=== PATIENT | female | born 1940 | race Caucasian/White ===

== ENCOUNTER 2016-03-22 09:30 | Outpatient (RCR) | payer MEDICARE, MEDICAID ==
--- OUTSIDE RECORDS SUMMARY | 2016-02-16 08:49 | XMS REPORT | Continuity of Care Document ---
Author Author [facility] Organization [facility] Address Unknown Phone Unavailable Care Team Providers Care Art Glass Setter Name Role Phone SHON CORDERO DO PCP Insurance Providers Payer Name Policy Number Subscriber Name Relationship [employer] [id number] Mony Sims 18 Self / Same As Patient Medicaid [place] [id number] Mony Sims 18 Self / Same As Patient Advance Directives Directive Response Recorded Date/Time Advance Directives Yes 11/30/15 1:13pm Health Care Power of Manager Generation No 11/30/15 1:13pm Organ Donor Yes 11/30/15 1:13pm Resuscitation Status Full Code 11/30/15 1:13pm Problems No problem information available. Medications Current Home Medications Medication Dose Units Route Directions Days/Qty Instructions Start Date Lisinopril 10 Mg 10 Mg Oral Daily 11/30/15 Ezetimibe 10 Mg 10 Mg Oral Daily 11/30/15 Potassium Chloride 20 Meq 20 Meq Oral Every Other Day 11/30/15 Pantoprazole Sodium 40 Mg 40 Mg Oral Daily 11/30/15 Paroxetine Hcl 10 Mg 10 Mg Oral Daily 11/30/15 Hydrocodone/Acetaminophen 1 Each 1 Each Oral Every 4HRS as needed for Pain 11/30/15 Multivitamin 1 Each 1 Each Oral Daily 11/30/15 [place] 3 Polyunsat Fatty Acids 1,000 Mg 1,000 Mg Oral Daily 11/30/15 Aspirin 81 Mg 81 Mg Oral Daily 11/30/15 Ferrous Sulfate 325 Mg 325 Mg Oral Every Other Day 11/30/15 Social History Social History Problem Response Recorded Date/Time Alcohol Use Denies Use 11/30/2015 1:13pm Recreational Drug Use No 11/30/2015 1:13pm Recent Foreign Travel No 11/30/2015 1:13pm Recent Infectious Disease Exposure No 11/30/2015 1:13pm Hospitalization with Isolation Denies 11/30/2015 1:13pm Smoking Status Former Smoker 11/30/2015 1:11pm Query Response Start Date Stop Date Smoking Status Former Smoker Hospital Discharge Instructions No hospital discharge instructions. Plan of Care Discharge Date 11/30/15 3:56pm Prescriptions See Medication Section Functional Status No functional status results. Allergies, Adverse Reactions, Alerts Allergen Type Severity Reaction Status Last Updated Iodinated Contrast Media - IV Dye Allergy Unknown HIVES Active 11/30/15 Pegpaae-Hfw-Ewe Reductase Inhibitors ([id number]) Allergy Unknown muscle pain Active 11/30/15 Levofloxacin Allergy Unknown HIVES Active 11/30/15 Immunizations Name Given Type Date of Pneumonia Vaccine 11/29/14 Historical Vital Signs Acute Vital Signs Vital Response Date/Time Height (Feet) 5 feet 11/30/2015 1:13pm Height (Inches) 3.00 inches 11/30/2015 1:13pm Height (Calculated Centimeters) 160.563388 cm 11/30/2015 1:13pm Weight (Pounds) 183 pounds 11/30/2015 1:13pm Weight (Ounces) 0.0 oz 11/30/2015 1:13pm Weight (Calculated Grams) 36282.405 gm 11/30/2015 1:13pm Weight (Calculated Kilograms) 83.144066 kilograms 11/30/2015 1:13pm Calculated BMI 30.45 11/30/2015 1:13pm Results Laboratory Results Test Name Result Units Flags Reference Collection Date/Time Result Date/ Time Comments White Blood Count 9.8 10^3/uL 4.3-11.0 11/28/2015 10:30am 11/28/2015 10 :37am Red Blood Count 4.74 10^6/uL 4.35-5.85 11/28/2015 10:30am 11/28/2015 10 :37am Hemoglobin 13.0 G/DL 11.5-16.0 11/28/2015 10:30am 11/28/2015 10:37am Hematocrit 41 % 35-52 11/28/2015 10:3011/28/2015 10:37am Mean Corpuscular Volume 85 FL 80-99 11/28/2015 10:11/28/2015 10: 37am Mean Corpuscular Hemoglobin 27 PG 25-34 11/28/2015 10:11/28/2015 10:37am Mean Corpuscular Hemoglobin Concent 32 G/DL 32-36 11/28/2015 10: 10:37am Red Cell Distribution Width 15.8 % H 10.0-14.5 11/28/2015 10:302015 10:37am Platelet Count 396 10^3/uL 130-400 11/28/2015 10:11/28/2015 10: 37am Mean Platelet Volume 8.3 FL 7.4-10.4 11/28/2015 10:11/28/2015 10: 37am Neutrophils (%) (Auto) 76 % H 42-75 11/28/2015 10:11/28/2015 10: 37am Lymphocytes (%) (Auto) 16 % 12-44 11/28/2015 10:11/28/2015 10: 37am Monocytes (%) (Auto) 6 % 0-12 11/28/2015 10:11/28/2015 10:37am Eosinophils (%) (Auto) 1 % 0-10 11/28/2015 10:11/28/2015 10:37am Basophils (%) (Auto) 1 % 0-10 11/28/2015 10:11/28/2015 10:37am Neutrophils # (Auto) 7.4 X 10^3 1.8-7.8 11/28/2015 10:11/28/2015 10:37am Lymphocytes # (Auto) 1.6 X 10^3 1.0-4.0 11/28/2015 10:11/28/2015 10:37am Monocytes # (Auto) 0.6 X 10^3 0.0-1.0 11/28/2015 10:3011/28/2015 10: 37am Eosinophils # (Auto) 0.1 10^3/uL 0.0-0.3 11/28/2015 10:3011/28/2015 10:37am Basophils # (Auto) 0.1 10^3/uL 0.0-0.1 11/28/2015 10:30am 11/28/2015 10 :37am Sodium Level 139 MMOL/L 135-145 11/28/2015 10:30am 11/28/2015 10:57am Potassium Level 4.1 MMOL/L 3.6-5.0 11/28/2015 10:30am 11/28/2015 10: 57am Chloride Level 105 MMOL/L 98-107 11/28/2015 10:30am 11/28/2015 10:57am Carbon Dioxide Level 24 MMOL/L 21-32 11/28/2015 10:30am 11/28/2015 10: 57am Anion Gap 10 MMOL/L 5-14 11/28/2015 10:30am 11/28/2015 10:57am Blood Urea Nitrogen 18 MG/DL -18 11/28/2015 10:30am 11/28/2015 10: 57am Creatinine 0.76 MG/DL 0.60-1.30 11/28/2015 10:30am 11/28/2015 10:57am BUN/Creatinine Ratio 24 11/28/2015 10:30am 11/28/2015 10:57am Estimat Glomerular Filtration Rate > 60 11/28/2015 10:30am 2015 10:57am GFR INTERPRETIVE DATA UNITS FOR ESTIMATED GFR (eGFR): mL/min/1.73 M2 REFERENCE RANGE FOR ESTIMATED GFR (eGFR) eGFR NORMAL eGFR >60 MODERATELY DECREASED eGFR 30-59 SEVERLY DECREASED eGFR 15-29 KIDNEY FAILURE <15 (OR DIALYSIS) Glucose Level 104 MG/DL 70-105 11/28/2015 10:30am 11/28/2015 10:57am Calcium Level 9.7 MG/DL 8.5-10.1 11/28/2015 10:3011/28/2015 10:57am Total Bilirubin 0.4 MG/DL 0.1-1.0 11/28/2015 10:30am 11/28/2015 10: 57am Alkaline Phosphatase 89 U/L 40-136 11/28/2015 10:30am 11/28/2015 10: 57am Aspartate Amino Transf (AST/SGOT) 26 U/L 5-34 11/28/2015 10:30am 2015 10:57am Alanine Aminotransferase (ALT/SGPT) 21 U/L 0-55 11/28/2015 10:30am 10:57am Total Protein 7.5 G/DL 6.4-8.2 11/28/2015 10:30am 11/28/2015 10:57am Albumin 4.1 G/DL 3.2-4.5 11/28/2015 10:30am 11/28/2015 10:57am Procedures Procedure Status Date Provider(s) Color Doppler echocardiography Completed 11/30/15 [facility] Encounters Encounter Location Arrival/Admit Date Discharge/Depart Date Attending Provider Departed Clinic [facility] 11/30/15 10:59am 11/30/15 3: 56pm SHREE THOMPSON DO Registered Clinic [facility] 11/30/15 8:21am [facility] CHIU Registered Recurring [facility] 11/28/15 8:26am [facility]
[2016-02-16 09:10] LABS: BASOPHILS # (AUTO) 0.1 10^3/uL (0.0-0.1); BASOPHILS % (AUTO) 1 % (0-10); EOSINOPHILS # (AUTO) 0.2 10^3/uL (0.0-0.3); EOSINOPHILS % (AUTO) 3 % (0-10); LYMPHOCYTES # (AUTO) 1.4 X 10^3 (1.0-4.0); LYMPHOCYTES % (AUTO) 22 % (12-44); MEAN CORPUSCULAR HEMOGLOBIN 28 PG (25-34); MEAN CORPUSCULAR HGB CONC 32 G/DL (32-36); MEAN CORPUSCULAR VOLUME 88 FL (80-99); MONOCYTES # (AUTO) 0.6 X 10^3 (0.0-1.0); MONOCYTES % (AUTO) 9 % (0-12); NEUTROPHILS # (AUTO) 4.2 X 10^3 (1.8-7.8); NEUTROPHILS % (AUTO) 65 % (42-75); PLATELET COUNT 421 10^3/uL (130-400); RED BLOOD COUNT 4.27 10^6/uL (4.35-5.85); RED CELL DISTRIBUTION WIDTH 18.5 % (10.0-14.5); WHITE BLOOD COUNT 6.4 10^3/uL (4.3-11.0)
[2016-02-16 09:40] LABS: ANION GAP 10 MMOL/L (5-14); BLOOD UREA NITROGEN 15 MG/DL (7-18); BUN/CREATININE RATIO 19; CALCIUM 9.6 MG/DL (8.5-10.1); CARBON DIOXIDE 20 MMOL/L (21-32); CHLORIDE 108 MMOL/L (98-107); CREATININE SERUM 0.78 MG/DL (0.60-1.30); GFR ESTIMATED > 60; GLUCOSE 99 MG/DL (70-105); POTASSIUM 3.7 MMOL/L (3.6-5.0); SODIUM 138 MMOL/L (135-145)
[2016-03-01 10:48] LABS: BASOPHILS # (AUTO) 0.1 10^3/uL (0.0-0.1); BASOPHILS % (AUTO) 1 % (0-10); EOSINOPHILS % (AUTO) 0 % (0-10); LYMPHOCYTES # (AUTO) 1.4 X 10^3 (1.0-4.0); LYMPHOCYTES % (AUTO) 14 % (12-44); MEAN CORPUSCULAR HEMOGLOBIN 28 PG (25-34); MEAN CORPUSCULAR HGB CONC 33 G/DL (32-36); MEAN CORPUSCULAR VOLUME 87 FL (80-99); MEAN PLATELET VOLUME 8.8 FL (7.4-10.4); MONOCYTES # (AUTO) 1.4 X 10^3 (0.0-1.0); MONOCYTES % (AUTO) 14 % (0-12); NEUTROPHILS # (AUTO) 7.5 X 10^3 (1.8-7.8); NEUTROPHILS % (AUTO) 72 % (42-75); PLATELET COUNT 507 10^3/uL (130-400); RED BLOOD COUNT 4.23 10^6/uL (4.35-5.85); RED CELL DISTRIBUTION WIDTH 18.3 % (10.0-14.5); WHITE BLOOD COUNT 10.4 10^3/uL (4.3-11.0)
[2016-03-01 11:19] LABS: ALANINE AMINOTRANSFERASE 20 U/L (0-55); ALBUMIN 4.1 G/DL (3.2-4.5); ANION GAP 12 MMOL/L (5-14); ASPARTATE AMINO TRANSFERASE 38 U/L (5-34); BILIRUBIN,TOTAL 0.5 MG/DL (0.1-1.0); BLOOD UREA NITROGEN 21 MG/DL (7-18); BUN/CREATININE RATIO 27; CALCIUM 10.1 MG/DL (8.5-10.1); CARBON DIOXIDE 22 MMOL/L (21-32); CHLORIDE 103 MMOL/L (98-107); CREATININE SERUM 0.77 MG/DL (0.60-1.30); GFR ESTIMATED > 60; GLUCOSE 98 MG/DL (70-105); POTASSIUM 3.8 MMOL/L (3.6-5.0); SODIUM 137 MMOL/L (135-145); TOTAL PROTEIN 7.9 G/DL (6.4-8.2)
[2016-03-19 10:02] LABS: BILIRUBIN,URINE NEGATIVE (NEGATIVE); KETONES,URINE NEGATIVE (NEGATIVE); LEUKOCYTE ESTERASE ,URINE 1+ (NEGATIVE); NITRITE,URINE NEGATIVE (NEGATIVE); PH,URINE 6 (5-9); PROTEIN,URINE 2+ (NEGATIVE); UROBILINOGEN,URINE NORMAL (NORMAL)
[2016-03-19 10:13] LABS: SQUAMOUS EPITHELIAL CELL,UR RARE /HPF; WBC,URINE RARE /HPF
[~2016-03-22 09:30] MED LIST: ASPI-586 PO; CEFD300C3 PO; DEXAMETHASONE INJ ONE; DEXAMETHASONE PF INJ (CANCER C 10 MG in NS (IVPB) CANCER CENTER 50 ML INJ ONE; EZET10TA5 PO; FERR-84 PO; HYDR-3812 PO; LISI10TA2 PO; MULT1CAP27 PO; NS IV 1000 ML (CANCER CTR) IV SCH; NS IV 500 ML (CANCER CENTER) IV SCH; OMG1KC PO; ONDA8TAB9 PO; ONDANSETRON MDV (CANCER CENTER 16 MG, DEXAMETHASONE PF INJ (CANCER C 10 MG in NS (IVPB)... IV SCH; PACLitaxel PROTEIN 160 MG in EMPTY IV BAG (PVC) CANCER CTR 1 EA IV SCH; PANT40TA3 PO; PARO10TA3 PO; POTA20TA15 PO; SODIUM CHLORIDE INJ ONE
== END 2016-05-16 | disposition home or self-care (01) ==
LOC: ONC 09:30
PROVIDERS: ATTEND Internal Medicine Hematology & Oncology
DX: Z51.11 Encounter for antineoplastic chemotherapy (principal); Z51.0 Encounter for antineoplastic radiation therapy; C50.911 Malignant neoplasm of unspecified site of right female breast; C34.91 Malignant neoplasm of unspecified part of right bronchus or lung; C78.7 Secondary malignant neoplasm of liver and intrahepatic bile duct; C79.51 Secondary malignant neoplasm of bone; I10 Essential (primary) hypertension; E78.00 Pure hypercholesterolemia, unspecified; F17.210 Nicotine dependence, cigarettes, uncomplicated
CPT/HCPCS: 36591; 77290; 77307; 77332; 77334; 77336; 77412; 77417; 77470; 80048; 80053; 81000; 85025; 86300; 96360; 96361; 96375; 96413; 99213; 99214